=== PATIENT | female | born 1955 | race Caucasian/White ===

== ENCOUNTER 2017-10-01 11:12 | Emergency (ER) | payer MEDICAID ==
[~2017-10-01] VITALS: Ht 160 cm; Wt 49.8 kg
[~2017-10-01 11:12] MED LIST: ALBU8.5H5 INH; ASPI-496 PO; CLON2TAB2 PO; IPRA15SP2 PO; LISI5TAB PO; METH5TAB2 PO; MIRT15TA3 PO; OMEP10CA2 PO; QUET25TA PO; QUET25TA5 PO; SERT25TA PO; SIMV5TAB PO; TIOT18CA INH; ZOLP-413 PO
[2017-10-01 13:14] VITALS: BP 152/80
[2017-10-01] MEDS ORDERED: NAPROXEN 500 MG TABLET PO ONE (16:00)
== END 2017-10-01 16:37 | disposition home or self-care (01) ==
LOC: ED 14:41
DX: M71.162 Other infective bursitis, left knee (principal); E11.9 Type 2 diabetes mellitus without complications; I10 Essential (primary) hypertension; J44.9 Chronic obstructive pulmonary disease, unspecified; I25.10 Atherosclerotic heart disease of native coronary artery without angina pectoris; I25.2 Old myocardial infarction; Z87.820 Personal history of traumatic brain injury
CPT/HCPCS: 99284

== ENCOUNTER 2018-07-06 08:03 | Emergency (ER) | payer MEDICAID ==
[~2018-07-06] VITALS: Ht 160 cm; Wt 50.8 kg
[~2018-07-06 08:03] MED LIST changes: -CLON2TAB2 PO; +CLON2TAB9 PO
[2018-07-06] MEDS ORDERED: KETOROLAC 30 MG/1 ML ONE (08:52)
[2018-07-06] MEDS ORDERED: ONDANSETRON ODT 4 MG ONE (08:52)
[2018-07-06] MEDS ORDERED: ALBUTEROL/IPRATROPIUM 2.5MG/0.5MG, 3 ML NPPB ONE (09:00)
[2018-07-06] MEDS ORDERED: ALBUTEROL/IPRATROPIUM 2.5MG/0.5MG, 3 ML ONE (09:14)
[2018-07-06 09:30] LABS: BASOPHILS # (AUTO) 0.04 x10^3/uL (0-0.1); BASOPHILS % (AUTO) 1 % (0-1); EOSINOPHILS % (AUTO) 0 % (1-7); LYMPHOCYTES # (AUTO) 2.23 x10^3/uL (1-3.4); LYMPHOCYTES % (AUTO) 35 % (22-44); MD NO; MEAN CORPUSCULAR HEMOGLOBIN 29.1 pg (27.0-34.8); MEAN CORPUSCULAR HGB CONC 33.5 g/dL (32.4-35.8); MEAN CORPUSCULAR VOLUME 86.9 fL (80-100); MONOCYTES # (AUTO) 0.54 x10^3/uL (0.2-0.8); MONOCYTES % (AUTO) 8 % (2-9); NEUTROPHILS # (AUTO) 3.63 x10^3/uL (1.8-6.8); NEUTROPHILS % (AUTO) 56 % (42-75); PLATELET COUNT 232 x10^3/uL (130-400); RED BLOOD COUNT 4.63 x10^6/uL (3.82-5.3); RED CELL DISTRIBUTION WIDTH 13.6 % (9.6-15.2)
[2018-07-06 09:44] LABS: ALANINE AMINOTRANSFERASE 22 U/L (12-78); ALBUMIN 3.7 g/dL (3.4-5.0); ANION GAP 9 mmol/L (5-15); CALCIUM 8.8 mg/dL (8.5-10.1); CHLORIDE 109 mmol/L (98-107)
[2018-07-06 09:49] LABS: ALKALINE PHOSPHATASE 52 U/L (45-117); BILIRUBIN,TOTAL 0.3 mg/dL (0.2-1.0); TOTAL PROTEIN 7.4 g/dL (6.4-8.2); TROPONIN I < 0.015 ng/mL (0.000-0.045)
[2018-07-06] MEDS ORDERED: ONDANSETRON ODT 4 MG PO ONE (10:00)
[2018-07-06] MEDS ORDERED: KETOROLAC 30 MG/1 ML IM ONE (10:00)
[2018-07-06 10:04] LABS: CLOSTRIDIUM DIFFICILE ANTIGEN NEGATIVE; CLOSTRIDIUM DIFFICILE TOXIN NEGATIVE (Negative)
[2018-07-06 10:35] VITALS: BP 159/40
== END 2018-07-06 10:52 | disposition home or self-care (01) ==
LOC: ED 10:45
DX: J44.1 Chronic obstructive pulmonary disease with (acute) exacerbation (principal); J00 Acute nasopharyngitis [common cold]; R19.7 Diarrhea, unspecified; I25.10 Atherosclerotic heart disease of native coronary artery without angina pectoris; I25.2 Old myocardial infarction; G89.29 Other chronic pain; I10 Essential (primary) hypertension; Z87.891 Personal history of nicotine dependence
CPT/HCPCS: 36415; 71046; 80053; 84484; 85025; 85379; 87324; 89055; 93005; 94640; 96372; 99285; J1885; J7620; Q0162

== ENCOUNTER 2018-08-17 19:55 | Emergency (ER) | payer MEDICAID ==
[~2018-08-17] VITALS: Ht 152.4 cm; Wt 57.0 kg
[2018-08-17 20:57] LABS: BASOPHILS # (AUTO) 0.04 x10^3/uL (0-0.1); BASOPHILS % (AUTO) 1 % (0-1); EOSINOPHILS # (AUTO) 0.14 x10^3/uL (0-0.4); EOSINOPHILS % (AUTO) 2 % (1-7); LYMPHOCYTES # (AUTO) 2.62 x10^3/uL (1-3.4); LYMPHOCYTES % (AUTO) 32 % (22-44); MD NO; MEAN CORPUSCULAR HEMOGLOBIN 29.4 pg (27.0-34.8); MEAN CORPUSCULAR HGB CONC 33.9 g/dL (32.4-35.8); MEAN CORPUSCULAR VOLUME 86.6 fL (80-100); MEAN PLATELET VOLUME 7.9 fL (7.4-10.4); MONOCYTES % (AUTO) 10 % (2-9); NEUTROPHILS # (AUTO) 4.59 x10^3/uL (1.8-6.8); NEUTROPHILS % (AUTO) 56 % (42-75); PLATELET COUNT 182 x10^3/uL (130-400); RED BLOOD COUNT 4.35 x10^6/uL (3.82-5.3); RED CELL DISTRIBUTION WIDTH 13.9 % (9.6-15.2)
[2018-08-17 21:10] LABS: ALANINE AMINOTRANSFERASE 20 U/L (12-78); ALBUMIN 3.6 g/dL (3.4-5.0); ANION GAP 5 mmol/L (5-15); CALCIUM 8.5 mg/dL (8.5-10.1); CHLORIDE 108 mmol/L (98-107); CREATININE 0.73 mg/dL (0.55-1.02)
[2018-08-17 21:12] LABS: ALKALINE PHOSPHATASE 52 U/L (45-117); BILIRUBIN,TOTAL 0.2 mg/dL (0.2-1.0)
[2018-08-17 22:16] LABS: MICROSCOPIC NOT IND
[2018-08-17 22:18] LABS: CULTURE INDICATED? NO
[2018-08-17 22:28] LABS: AMPHETAMINE SCREEN, URINE Positive (Negative); BARBITURATE SCREEN, URINE Negative (Negative); BENZODIAZEPINE SCREEN, URINE Positive (Negative); CANNABINOID SCREEN, URINE Negative (Negative); COCAINE SCREEN, URINE Negative (Negative); METHADONE SCREEN, URINE Negative (Negative); OPIATE SCREEN, URINE Positive (Negative)
[2018-08-18 00:37] VITALS: BP 94/56
== END 2018-08-18 02:42 | disposition home or self-care (01) ==
LOC: ED 21:23
DX: R41.82 Altered mental status, unspecified (principal); R53.83 Other fatigue; F19.10 Other psychoactive substance abuse, uncomplicated; J44.9 Chronic obstructive pulmonary disease, unspecified; I25.2 Old myocardial infarction; G89.29 Other chronic pain; E11.9 Type 2 diabetes mellitus without complications; I10 Essential (primary) hypertension; I25.10 Atherosclerotic heart disease of native coronary artery without angina pectoris
CPT/HCPCS: 36415; 70450; 80053; 80307; 81003; 85025; 99285

== ENCOUNTER 2018-12-27 17:59 | Observation (INO) | payer MEDICAID ==
[~2018-12-27] VITALS: Ht 160 cm; Wt 48.5 kg
[~2018-12-27 17:59] MED LIST changes: -QUET25TA PO; +QUET25TA7 PO
--- NOTE | 2018-12-27 18:37 | NUR ---
Pt brought in by EMS with c/o "multiple falls from feeling light headed with skin abrasions to right eyebrow and nose." Pt recently seen at [facility] for falls. Pt presents to ED with c-collar on from EMS. Pt complains of 8/10 back pain and right knee pain. Pt states, "I fell twice today and twice yesterday." NADN. adult manager did EKG at bedside. Pt connected to classroom monitor, SPO2% monitor, and NIBP. All safety precautions in place. Call light within reach. Pt clothing placed in personal belonging bag. Pt asks, "can I watch T.V.?" Pt denies cp, sob, n/v/d, diaphoresis
[2018-12-27] MEDS ORDERED: ACETAMINOPHEN 325 MG TABLET PO ONE (19:00)
--- NOTE | 2018-12-27 19:00 | NUR ---
Provided bedside report to ARABELLA Rocha. All questions answered.
[2018-12-27] MEDS ORDERED: ASPIRIN 81 MG TABLET CHEW ONE (19:01)
[2018-12-27 19:20] LABS: BASOPHILS # (AUTO) 0.04 x10^3/uL (0-0.1); BASOPHILS % (AUTO) 1 % (0-1); EOSINOPHILS % (AUTO) 0 % (1-7); LYMPHOCYTES # (AUTO) 1.17 x10^3/uL (1-3.4); LYMPHOCYTES % (AUTO) 18 % (22-44); MD NO; MEAN CORPUSCULAR HEMOGLOBIN 29.3 pg (27.0-34.8); MEAN CORPUSCULAR HGB CONC 34.3 g/dL (32.4-35.8); MEAN CORPUSCULAR VOLUME 85.4 fL (80-100); MEAN PLATELET VOLUME 7.6 fL (7.4-10.4); MONOCYTES # (AUTO) 0.43 x10^3/uL (0.2-0.8); MONOCYTES % (AUTO) 7 % (2-9); NEUTROPHILS # (AUTO) 4.97 x10^3/uL (1.8-6.8); NEUTROPHILS % (AUTO) 75 % (42-75); PLATELET COUNT 172 x10^3/uL (130-400); RED CELL DISTRIBUTION WIDTH 14.6 % (9.6-15.2)
[2018-12-27 19:24] LABS: INTERNATIONAL NORMALIZED RATIO 0.98 (0.93-1.1); PROTHROMBIN TIME 10.3 Seconds (9.6-11.5)
[2018-12-27 19:26] LABS: ALBUMIN 3.8 g/dL (3.4-5.0); ANION GAP 5 mmol/L (5-15); CHLORIDE 112 mmol/L (98-107)
[2018-12-27 19:29] LABS: ALANINE AMINOTRANSFERASE 15 U/L (12-78); ALKALINE PHOSPHATASE 48 U/L (45-117); BILIRUBIN,TOTAL 0.5 mg/dL (0.2-1.0); CREATININE 0.77 mg/dL (0.55-1.02); TOTAL PROTEIN 6.7 g/dL (6.4-8.2)
[2018-12-27] MEDS ORDERED: BACITRACIN ZINC OINT 500U/GM, 0.9 GM ONE (19:51)
--- NOTE | 2018-12-27 19:55 | NUR ---
pt wounds being cleaned. pt remains in c-collar
[2018-12-27] MEDS ORDERED: ACETAMINOPHEN 325 MG TABLET ONE (20:00)
--- NOTE | 2018-12-27 20:10 | NUR ---
pt medicated for pain per emar.
--- NOTE | 2018-12-27 20:17 | NUR ---
x-ray in to see pt
--- NOTE | 2018-12-27 21:26 | NUR ---
pt resting in bed with eyes closed. no stated needs at this time.
[2018-12-27] MEDS ORDERED: DIAZ5TAB4 PO (22:17)
[2018-12-27] MEDS ORDERED: TRAZ-137 PO (22:17)
[2018-12-27] MEDS ORDERED: MEMA5TAB PO (22:17)
--- NOTE | 2018-12-27 22:17 | NUR ---
HOSPITALIST HAS EVALUATED PT. PT CLEARED FOR C-SPINE, HARD COLLAR HAS BEEN REMOVED. PT AWARE SHE IS BEING ADMITTED TO HOSPITAL.
--- NOTE | 2018-12-27 22:27 | NUR ---
REPORT TO ANNIVER FOR ROOM 467
[2018-12-27] MEDS ORDERED: ACETAMINOPHEN 325 MG TABLET PO PRN (22:30)
[2018-12-27] MEDS ORDERED: ONDANSETRON ODT 4 MG PO PRN (22:30)
[2018-12-27] MEDS ORDERED: ENALAPRILAT 1.25 MG/ML, 2ML IVPush PRN (22:30)
[2018-12-27] MEDS ORDERED: ONDANSETRON 2MG/ML, 2ML IVPush PRN (22:30)
--- NOTE | 2018-12-27 22:42 | NUR ---
2 IV ATTEMPTS HAVE FAILED. ANOTHER RN IN TRYING FOR LINE
[2018-12-27 23:08] LABS: THYROID STIMULATING HORMONE 1.62 mIU/L (0.358-3.740)
[2018-12-27 23:11] VITALS: BP 155/80
[2018-12-28] MEDS ORDERED: TRAZODONE 100MG TABLET PO PRN
[2018-12-28] MEDS ORDERED: ALBUTEROL SULFATE 2.5 MG/3 ML NPPB PRN
[2018-12-28 00:08] VITALS: BP 155/80
[2018-12-28] MEDS: ENOXAPARIN 40 MG/0.4 ML SQ SCH ×2 (00:56→00:57)
[2018-12-28 01:45] LABS: MICROSCOPIC AUTO
[2018-12-28 01:47] LABS: AMPHETAMINE SCREEN, URINE Negative (Negative); BARBITURATE SCREEN, URINE Negative (Negative); BENZODIAZEPINE SCREEN, URINE Positive (Negative); CANNABINOID SCREEN, URINE Negative (Negative); COCAINE SCREEN, URINE Negative (Negative); CULTURE INDICATED? YES; METHADONE SCREEN, URINE Negative (Negative); OPIATE SCREEN, URINE Negative (Negative)
[2018-12-28 02:52] VITALS: BP 120/70
[2018-12-28] MEDS ORDERED: LOSA50TA14 PO (04:47)
[2018-12-28 07:18] VITALS: BP 137/71
[2018-12-28] MEDS ORDERED: MEMANTINE 5MG TABLET PO SCH (09:00)
[2018-12-28] MEDS ORDERED: LOSARTAN 50MG TABLET PO SCH (10:00)
[2018-12-28 12:35] VITALS: BP 165/83
[2018-12-28 15:15] VITALS: BP 156/74
== END 2018-12-28 15:40 | disposition home or self-care (01) ==
LOC: ED 21:28 → INTOOBSV 22:10 → EDIP 22:10 → 4NOR 23:02
PROVIDERS: ADMIT Family Medicine; ATTEND Family Medicine
DX: S00.81XA Abrasion of other part of head, initial encounter (principal); R26.9 Unspecified abnormalities of gait and mobility; J44.9 Chronic obstructive pulmonary disease, unspecified; I10 Essential (primary) hypertension; W18.30XA Fall on same level, unspecified, initial encounter; Y93.89 Activity, other specified; Y92.89 Other specified places as the place of occurrence of the external cause; Y99.8 Other external cause status; I44.7 Left bundle-branch block, unspecified; Z79.899 Other long term (current) drug therapy
CPT/HCPCS: 36415; 70450; 70486; 71045; 72125; 80053; 80307; 81001; 82607; 84443; 85025; 85610; 85730; 86592; 86780; 87086; 87806; 93005; 99285; G0378; J1650; G0475

== ENCOUNTER 2019-02-07 08:08 | Inpatient (IN) | payer MEDICAID ==
[~2019-02-07] VITALS: Ht 160 cm; Wt 52.8 kg
[~2019-02-07 08:08] MED LIST changes: +DIAZ5TAB4 PO; +LOSA50TA14 PO; +MEMA5TAB PO; +TRAZ-137 PO
[2019-02-07] MEDS ORDERED: MEMA5TAB PO (08:21)
[2019-02-07] MEDS ORDERED: CITA20TA6 PO (08:21)
[2019-02-07] MEDS ORDERED: QUET25TA7 PO (08:24)
[2019-02-07] MEDS ORDERED: ONDANSETRON 2MG/ML, 2ML ONE (08:27)
[2019-02-07] MEDS ORDERED: MORPHINE SULFATE 4 MG/ML, 1ML ONE ×2 (08:27→13:57)
[2019-02-07] MEDS ORDERED: MORPHINE SULFATE 4 MG/ML, 1ML IVPush PRN (08:30)
[2019-02-07] MEDS ORDERED: SODIUM CHLORIDE FLUSH 10ML SYR IVF ONE (08:30)
[2019-02-07] MEDS ORDERED: ASPIRIN 81 MG TABLET CHEW PO ONE (08:30)
[2019-02-07] MEDS ORDERED: ONDANSETRON 2MG/ML, 2ML IVPush ONE (08:30)
[2019-02-07 09:18] LABS: MEAN CORPUSCULAR HEMOGLOBIN 28.5 pg (27.0-34.8); MEAN CORPUSCULAR HGB CONC 32.8 g/dL (32.4-35.8); MEAN CORPUSCULAR VOLUME 86.9 fL (80-100); MEAN PLATELET VOLUME 8.1 fL (7.4-10.4); PLATELET COUNT 154 x10^3/uL (130-400); RED BLOOD COUNT 5.05 x10^6/uL (3.82-5.3); RED CELL DISTRIBUTION WIDTH 13.7 % (9.6-15.2)
[2019-02-07] MEDS ORDERED: CEFTRIAXONE PMX 1GM/50ML 50 ML IV ONE (09:30)
[2019-02-07] MEDS ORDERED: SODIUM CHLORIDE 0.9% 1,000ML IVBOLUS ONE (09:30)
[2019-02-07] MEDS ORDERED: AZITHROMYCIN 500 MG in SODIUM CHLORIDE 0.9% 250 ML IV ONE (09:30)
[2019-02-07] MEDS ORDERED: CEFTRIAXONE PMX 1GM/50ML 50 ML ONE (09:42)
--- NOTE | 2019-02-07 09:48 | NUR ---
CARE FOR RN BREAK PROVIDED. PT SR PER MONITOR, AUTO BP AND PULSE OX IN PLACE. IV FLUIDS AND ABX STARTED ORDERED. BLOOD CULTURES X2 IN LAB PROCESSING. PINK ARMBAND IN PLACE. PT WITH MELLISSA PAWS WARMER IN PLACE. FLUIIDS AT BEDSIDE.
[2019-02-07 09:53] LABS: MD YES
[2019-02-07 09:54] LABS: BANDS%(MANUAL) 7 % (0-7); LYMPH#(MANUAL) 0.52 x10^3/uL (1-3.4); LYMPHS% (MANUAL) 4 % (22-44); MONOS#(MANUAL) 0.52 x10^3/uL (0.3-2.7); MONOS% (MANUAL) 4 % (2-9); SEG#(MANUAL) 10.97 x10^3/uL (1.8-6.8); SEGS% (MANUAL) 85 % (42-75)
[2019-02-07 09:55] LABS: <PLATELET ESTIMATE> ADEQUATE; <PLT MORPHOLOGY> NORMAL PLT MORPH; <RBC MORPHOLOGY> NORMAL
--- NOTE | 2019-02-07 09:56 | NUR ---
REPORT TO JUAN RAMON BELL.
[2019-02-07 10:05] LABS: ALBUMIN 3.9 g/dL (3.4-5.0); ANION GAP 7 mmol/L (5-15); CALCIUM 8.9 mg/dL (8.5-10.1); CHLORIDE 107 mmol/L (98-107); CREATININE 0.96 mg/dL (0.55-1.02)
[2019-02-07 10:08] LABS: TROPONIN I < 0.015 ng/mL (0.000-0.045)
--- NOTE | 2019-02-07 10:54 | NUR ---
SBAR TO ASYA BELL VIA TELEPHONE
[2019-02-07 11:24] VITALS: BP 163/80
[2019-02-07] MEDS: LOSARTAN 50MG TABLET PO SCH (12:30)
[2019-02-07] MEDS: MEMANTINE 5MG TABLET PO SCH (12:30)
[2019-02-07] MEDS: CITALOPRAM 20 MG TABLET PO SCH (12:30)
[2019-02-07] MEDS ORDERED: ONDANSETRON 2MG/ML, 2ML IVPush PRN (12:30)
[2019-02-07] MEDS: ENOXAPARIN 40 MG/0.4 ML SQ SCH (12:30)
[2019-02-07] MEDS ORDERED: DOCUSATE 100 MG CAPSULE PO PRN (12:30)
[2019-02-07] MEDS ORDERED: hydrALAzine 20 MG/ML, 1ML IVPush PRN (12:30)
[2019-02-07] MEDS ORDERED: morphine SULFATE 10 MG/ML, 1ML IVPush PRN (12:30)
[2019-02-07] MEDS ORDERED: ACETAMINOPHEN 325 MG TABLET PO PRN (12:30)
[2019-02-07] MEDS ORDERED: NITROGLYCERIN 0.4 MG BOTTLE (25 TABS) SL PRN (12:30)
[2019-02-07] MEDS ORDERED: CYCLOBENZAPRINE 10 MG TABLET PO PRN (12:30)
[2019-02-07] MEDS ORDERED: ALBUTEROL SULFATE 2.5 MG/3 ML NPPB PRN (14:00)
[2019-02-07] MEDS: LACTATED RINGERS 1,000 ML IV SCH (14:08)
[2019-02-07 14:18] VITALS: BP 120/67
[2019-02-07 18:42] VITALS: BP 101/51
[2019-02-07] MEDS: QUETIAPINE 25MG TABLET PO SCH (20:33)
[2019-02-08] MEDS: LACTATED RINGERS 1,000 ML IV SCH (00:56)
[2019-02-08 01:09] VITALS: BP 109/47
[2019-02-08 01:15] VITALS: BP 109/47
[2019-02-08 05:57] LABS: ANION GAP 4 mmol/L (5-15); CALCIUM 8.5 mg/dL (8.5-10.1); CHLORIDE 109 mmol/L (98-107); CREATININE 0.74 mg/dL (0.55-1.02)
[2019-02-08 06:08] LABS: BASOPHILS # (AUTO) 0.03 x10^3/uL (0-0.1); BASOPHILS % (AUTO) 0 % (0-1); EOSINOPHILS % (AUTO) 0 % (1-7); LYMPHOCYTES # (AUTO) 1.76 x10^3/uL (1-3.4); LYMPHOCYTES % (AUTO) 14 % (22-44); MD NO; MEAN CORPUSCULAR HGB CONC 33.4 g/dL (32.4-35.8); MEAN CORPUSCULAR VOLUME 86.8 fL (80-100); MEAN PLATELET VOLUME 8.5 fL (7.4-10.4); MONOCYTES % (AUTO) 8 % (2-9); NEUTROPHILS # (AUTO) 9.83 x10^3/uL (1.8-6.8); NEUTROPHILS % (AUTO) 78 % (42-75); PLATELET COUNT 149 x10^3/uL (130-400); RED BLOOD COUNT 4.11 x10^6/uL (3.82-5.3)
[2019-02-08 07:21] VITALS: BP 116/65
[2019-02-08] MEDS: CEFTRIAXONE PMX 1GM/50ML 50 ML IV SCH ×2 (08:47→20:42)
[2019-02-08] MEDS: MEMANTINE 5MG TABLET PO SCH (08:47)
[2019-02-08] MEDS: LOSARTAN 50MG TABLET PO SCH (08:47)
[2019-02-08] MEDS: CITALOPRAM 20 MG TABLET PO SCH (08:47)
[2019-02-08] MEDS ORDERED: CEFTRIAXONE PMX 1GM/50ML 50 ML IV SCH (09:00)
[2019-02-08] MEDS: AZITHROMYCIN 500 MG in SODIUM CHLORIDE 0.9% 250 ML IV SCH (11:37)
[2019-02-08] MEDS: GUAIFENESIN/COD200MG-20MG/10ML LIQUID PO PRN ×2 (11:42→20:56)
[2019-02-08] MEDS: ENOXAPARIN 40 MG/0.4 ML SQ SCH (11:42)
[2019-02-08 12:54] VITALS: BP 120/66
[2019-02-08 18:26] VITALS: BP 142/68
[2019-02-08] MEDS: QUETIAPINE 25MG TABLET PO SCH (20:42)
[2019-02-09 01:19] VITALS: BP 118/74
[2019-02-09 05:57] LABS: ANION GAP 3 mmol/L (5-15); CALCIUM 8.7 mg/dL (8.5-10.1); CHLORIDE 108 mmol/L (98-107); CREATININE 0.57 mg/dL (0.55-1.02)
[2019-02-09 06:16] LABS: BASOPHILS # (AUTO) 0.03 x10^3/uL (0-0.1); BASOPHILS % (AUTO) 0 % (0-1); EOSINOPHILS % (AUTO) 0 % (1-7); LYMPHOCYTES # (AUTO) 1.93 x10^3/uL (1-3.4); LYMPHOCYTES % (AUTO) 22 % (22-44); MD NO; MEAN CORPUSCULAR HEMOGLOBIN 29.5 pg (27.0-34.8); MEAN CORPUSCULAR HGB CONC 33.8 g/dL (32.4-35.8); MEAN CORPUSCULAR VOLUME 87.4 fL (80-100); MEAN PLATELET VOLUME 8.2 fL (7.4-10.4); MONOCYTES # (AUTO) 0.71 x10^3/uL (0.2-0.8); MONOCYTES % (AUTO) 8 % (2-9); NEUTROPHILS # (AUTO) 6.17 x10^3/uL (1.8-6.8); NEUTROPHILS % (AUTO) 70 % (42-75); PLATELET COUNT 151 x10^3/uL (130-400); RED BLOOD COUNT 4.06 x10^6/uL (3.82-5.3); RED CELL DISTRIBUTION WIDTH 13.6 % (9.6-15.2)
[2019-02-09 07:36] VITALS: BP 138/72
[2019-02-09] MEDS: LOSARTAN 50MG TABLET PO SCH (08:40)
[2019-02-09] MEDS: MEMANTINE 5MG TABLET PO SCH (08:40)
[2019-02-09] MEDS: CITALOPRAM 20 MG TABLET PO SCH (08:40)
[2019-02-09] MEDS: GUAIFENESIN/COD200MG-20MG/10ML LIQUID PO PRN ×2 (08:41→19:51)
[2019-02-09] MEDS: CEFTRIAXONE PMX 1GM/50ML 50 ML IV SCH ×2 (08:56→20:51)
[2019-02-09] MEDS: AZITHROMYCIN 500 MG in SODIUM CHLORIDE 0.9% 250 ML IV SCH (11:21)
[2019-02-09] MEDS: ENOXAPARIN 40 MG/0.4 ML SQ SCH (11:22)
[2019-02-09 12:36] VITALS: BP 136/71
[2019-02-09 19:30] VITALS: BP 136/63
[2019-02-09] MEDS: QUETIAPINE 25MG TABLET PO SCH (19:51)
[2019-02-10 01:39] VITALS: BP 143/63
[2019-02-10 07:44] VITALS: BP 130/63
[2019-02-10] MEDS: LOSARTAN 50MG TABLET PO SCH (08:46)
[2019-02-10] MEDS: CEFTRIAXONE PMX 1GM/50ML 50 ML IV SCH (08:46)
[2019-02-10] MEDS: MEMANTINE 5MG TABLET PO SCH (08:46)
[2019-02-10] MEDS: CITALOPRAM 20 MG TABLET PO SCH (08:46)
[2019-02-10] MEDS: AZITHROMYCIN 500 MG in SODIUM CHLORIDE 0.9% 250 ML IV SCH (11:30)
[2019-02-10] MEDS: ENOXAPARIN 40 MG/0.4 ML SQ SCH (12:18)
[2019-02-10] MEDS ORDERED: LEVO750T26 PO (12:51)
== END 2019-02-10 13:55 | disposition home or self-care (01) | DRG 871 ==
LOC: ED 09:17 → EDIP 10:18 → 3NE 11:10 → DCLOUNGE 02-10 13:36
PROVIDERS: ADMIT Internal Medicine; ATTEND Internal Medicine
DX: A40.3 Sepsis due to Streptococcus pneumoniae (principal); J15.9 Unspecified bacterial pneumonia; J96.01 Acute respiratory failure with hypoxia; J44.0 Chronic obstructive pulmonary disease with (acute) lower respiratory infection; J44.1 Chronic obstructive pulmonary disease with (acute) exacerbation; G89.29 Other chronic pain; M54.9 Dorsalgia, unspecified; R07.89 Other chest pain; E11.9 Type 2 diabetes mellitus without complications; F03.90 Unspecified dementia, unspecified severity, without behavioral disturbance, psychotic disturbance, mood disturbance, and anxiety; F17.210 Nicotine dependence, cigarettes, uncomplicated; F41.9 Anxiety disorder, unspecified; I25.10 Atherosclerotic heart disease of native coronary artery without angina pectoris; I10 Essential (primary) hypertension; Z59.0 Homelessness; I25.2 Old myocardial infarction
CPT/HCPCS: 36415; 84145; 99285; J7613; 71045; 80048; 82040; 83605; 83735; 83880; 84484; 85025; 87040; 87077; 87181; 93005; 94640; 96365; 96375; G0378; J0456; J0696; J2405; J2270; J7030; J7050; J7120

== ENCOUNTER 2019-03-07 18:48 | Emergency (ER) | payer MEDICAID ==
[~2019-03-07] VITALS: Ht 160 cm; Wt 50.0 kg
[~2019-03-07 18:48] MED LIST changes: +CITA20TA6 PO; +LEVO750T26 PO
--- NOTE | 2019-03-07 19:07 | NUR ---
LAUREN CALDWELL FROM [facility], PER EMS PT LETHARGIC, ALERT TO SELF ONLY. PT FOLLOWS COMMAND, + HANDBOOK WRITER, CO RIGHT UPPER ARM PAIN ONLY. FSBS-118, HR-118, B/P-122/70, 93% R/A. MONITORS APPLIED, SIDERAISL UP X2, CALL LIGHT WITHIN REACH. FAMILY AT BEDSIDE
[2019-03-07 19:39] LABS: BASOPHILS # (AUTO) 0.03 x10^3/uL (0-0.1); BASOPHILS % (AUTO) 1 % (0-1); EOSINOPHILS % (AUTO) 0 % (1-7); LYMPHOCYTES # (AUTO) 1.91 x10^3/uL (1-3.4); LYMPHOCYTES % (AUTO) 35 % (22-44); MD NO; MEAN CORPUSCULAR HEMOGLOBIN 28.7 pg (27.0-34.8); MEAN CORPUSCULAR HGB CONC 32.2 g/dL (32.4-35.8); MEAN CORPUSCULAR VOLUME 89.1 fL (80-100); MEAN PLATELET VOLUME 7.3 fL (7.4-10.4); MONOCYTES # (AUTO) 0.44 x10^3/uL (0.2-0.8); MONOCYTES % (AUTO) 8 % (2-9); NEUTROPHILS # (AUTO) 3.06 x10^3/uL (1.8-6.8); NEUTROPHILS % (AUTO) 56 % (42-75); PLATELET COUNT 178 x10^3/uL (130-400); RED BLOOD COUNT 4.26 x10^6/uL (3.82-5.3); RED CELL DISTRIBUTION WIDTH 13.9 % (9.6-15.2)
[2019-03-07] MEDS ORDERED: CITA10TA4 PO (19:42)
[2019-03-07] MEDS ORDERED: DIAZ2TAB3 PO (19:42)
[2019-03-07] MEDS ORDERED: SERT25TA3 PO (19:42)
[2019-03-07] MEDS ORDERED: BUSP5TAB2 PO (19:42)
[2019-03-07 19:43] LABS: ALANINE AMINOTRANSFERASE 16 U/L (12-78); ALBUMIN 3.8 g/dL (3.4-5.0); ANION GAP 8 mmol/L (5-15); CALCIUM 8.9 mg/dL (8.5-10.1); CHLORIDE 111 mmol/L (98-107); CREATININE 0.85 mg/dL (0.55-1.02)
[2019-03-07 19:47] LABS: ALKALINE PHOSPHATASE 51 U/L (45-117); BILIRUBIN,TOTAL 0.3 mg/dL (0.2-1.0); TROPONIN I < 0.015 ng/mL (0.000-0.045)
[2019-03-07 19:55] VITALS: BP 146/72
--- NOTE | 2019-03-07 19:56 | NUR ---
pt resting on marco barry, monitors in place, siderails up x2, call light within reach. chart up for recheck
== END 2019-03-07 20:54 | disposition home or self-care (01) ==
LOC: ED 20:38
DX: F41.1 Generalized anxiety disorder (principal); I10 Essential (primary) hypertension; J44.9 Chronic obstructive pulmonary disease, unspecified; I25.2 Old myocardial infarction; I25.10 Atherosclerotic heart disease of native coronary artery without angina pectoris; F17.200 Nicotine dependence, unspecified, uncomplicated; Z90.710 Acquired absence of both cervix and uterus
CPT/HCPCS: 36415; 71045; 80053; 83880; 84484; 85025; 93005; 99284

== ENCOUNTER 2019-04-04 18:37 | Emergency (ER) | payer MEDICAID ==
[~2019-04-04] VITALS: Ht 160 cm; Wt 54.5 kg
[~2019-04-04 18:37] MED LIST changes: +BUSP5TAB2 PO; +CITA10TA4 PO; +DIAZ2TAB3 PO; +SERT25TA3 PO
--- NOTE | 2019-04-04 19:00 | NUR ---
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 GIVEN ONE NITRO BRINGING CP FROM A 07/16 TO 03/16 THEN GIVEN FENTANYL 100MCG FOR RESULTING [place]. PT ON MONITOR. PT GIVEN HOME [place] PER DR. GARCES SINCE SHE DID NOT TAKE HER BP MEDS SINCE YESTERDAY.
[2019-04-04 19:14] LABS: BASOPHILS # (AUTO) 0.06 x10^3/uL (0-0.1); BASOPHILS % (AUTO) 1 % (0-1); EOSINOPHILS % (AUTO) 0 % (1-7); LYMPHOCYTES # (AUTO) 1.43 x10^3/uL (1-3.4); LYMPHOCYTES % (AUTO) 19 % (22-44); MD NO; MEAN CORPUSCULAR HEMOGLOBIN 29.6 pg (27.0-34.8); MEAN CORPUSCULAR HGB CONC 33.3 g/dL (32.4-35.8); MEAN CORPUSCULAR VOLUME 88.9 fL (80-100); MEAN PLATELET VOLUME 7.9 fL (7.4-10.4); MONOCYTES # (AUTO) 0.49 x10^3/uL (0.2-0.8); MONOCYTES % (AUTO) 6 % (2-9); NEUTROPHILS # (AUTO) 5.74 x10^3/uL (1.8-6.8); NEUTROPHILS % (AUTO) 74 % (42-75); PLATELET COUNT 189 x10^3/uL (130-400); RED BLOOD COUNT 4.71 x10^6/uL (3.82-5.3); RED CELL DISTRIBUTION WIDTH 13.8 % (9.6-15.2)
[2019-04-04] MEDS ORDERED: BUSP10TA PO (19:17)
[2019-04-04] MEDS ORDERED: DIAZ5TAB4 PO (19:17)
[2019-04-04 19:24] LABS: INTERNATIONAL NORMALIZED RATIO 0.95 (0.93-1.1)
[2019-04-04 19:26] LABS: ALANINE AMINOTRANSFERASE 18 U/L (12-78); ANION GAP 7 mmol/L (5-15); CALCIUM 9.2 mg/dL (8.5-10.1); CHLORIDE 109 mmol/L (98-107); CREATININE 0.75 mg/dL (0.55-1.02)
[2019-04-04 19:30] LABS: ALKALINE PHOSPHATASE 56 U/L (45-117); BILIRUBIN,TOTAL 0.3 mg/dL (0.2-1.0); TOTAL PROTEIN 7.2 g/dL (6.4-8.2); TROPONIN I < 0.015 ng/mL (0.000-0.045)
--- NOTE | 2019-04-04 19:34 | NUR ---
CHART UP FOR MD RECHECK. PT AWARE.
[2019-04-04 19:58] VITALS: BP 173/83
--- NOTE | 2019-04-04 20:11 | NUR ---
DR. GARCES AT BEDSIDE FOR RECHECK.
== END 2019-04-04 20:45 | disposition home or self-care (01) ==
LOC: ED 19:29
DX: R07.89 Other chest pain (principal); I10 Essential (primary) hypertension; F17.200 Nicotine dependence, unspecified, uncomplicated
CPT/HCPCS: 36415; 71045; 80053; 84484; 85025; 85610; 85730; 93005; 99284

== ENCOUNTER 2019-05-25 16:04 | Emergency (ER) | payer MEDICAID ==
[~2019-05-25] VITALS: Ht 160 cm; Wt 58.0 kg
[2019-05-25 17:13] VITALS: BP 155/111
== END 2019-05-25 18:06 | disposition home or self-care (01) ==
LOC: ED 17:45
DX: R07.89 Other chest pain (principal); Z76.0 Encounter for issue of repeat prescription; F17.200 Nicotine dependence, unspecified, uncomplicated; I10 Essential (primary) hypertension; J44.9 Chronic obstructive pulmonary disease, unspecified; I25.2 Old myocardial infarction; F17.210 Nicotine dependence, cigarettes, uncomplicated; Z90.710 Acquired absence of both cervix and uterus
CPT/HCPCS: 36415; 71045; 80048; 82040; 84484; 85025; 93005; 96374; 99284; J1885

== ENCOUNTER 2019-08-15 06:16 | Inpatient (IN) | payer MEDICAID ==
[~2019-08-15] VITALS: Ht 160 cm; Wt 62.3 kg
[~2019-08-15 06:16] MED LIST changes: +BUSP10TA PO; +SERT50TA28 PO
--- NOTE | 2019-08-15 06:23 | NUR ---
EKG IN TRIAGE
[2019-08-15] MEDS ORDERED: BUSP15TA PO (06:43)
[2019-08-15] MEDS ORDERED: QUET25TA7 PO (06:43)
[2019-08-15] MEDS ORDERED: LOSA50TA14 PO (06:43)
[2019-08-15] MEDS ORDERED: DIAZ5TAB4 PO (06:43)
[2019-08-15] MEDS ORDERED: CITA20TA6 PO (06:43)
--- NOTE | 2019-08-15 06:43 | NUR ---
PT BIB SELF WITH C/O PRODUCTIVE COUGH WITH YELLOW SPUTUM FOR 3 DAYS. C/O BILAT RIB PAIN WORSE WITH COUGH. PT WITH NO S/S OF ACUTE RESP DISTRESS. PT NSR WITH BBB NOTED ON MONITOR. PT SPEAKING FULL SENTENCES WITH LITTLE DIFFICULTY. PT UNABLE TO TAKE DEEP BREATHS WITHOUT COUGHING. MONITOR, BP, AND PULSE OX IN PLACE. CALL LIGHT IN REACH. WARM BLANKET GIVEN. AWAITING ERP EVAL.
[2019-08-15] MEDS ORDERED: SODIUM CHLORIDE FLUSH 10ML SYR IVF ONE (07:00)
--- NOTE | 2019-08-15 07:26 | NUR ---
LABS OBTAINED, MEDICATED ORDERED
[2019-08-15 07:47] LABS: BASOPHILS # (AUTO) 0.03 x10^3/uL (0-0.1); BASOPHILS % (AUTO) 0 % (0-1); EOSINOPHILS % (AUTO) 0 % (1-7); LYMPHOCYTES # (AUTO) 1.04 x10^3/uL (1-3.4); LYMPHOCYTES % (AUTO) 12 % (22-44); MD NO; MEAN CORPUSCULAR HEMOGLOBIN 28.9 pg (27.0-34.8); MEAN CORPUSCULAR HGB CONC 32.8 g/dL (32.4-35.8); MEAN CORPUSCULAR VOLUME 88.1 fL (80-100); MEAN PLATELET VOLUME 8.2 fL (7.4-10.4); MONOCYTES # (AUTO) 0.72 x10^3/uL (0.2-0.8); MONOCYTES % (AUTO) 8 % (2-9); NEUTROPHILS % (AUTO) 80 % (42-75); PLATELET COUNT 210 x10^3/uL (130-400); RED BLOOD COUNT 4.35 x10^6/uL (3.82-5.3); RED CELL DISTRIBUTION WIDTH 13.4 % (9.6-15.2)
[2019-08-15 07:50] LABS: ALANINE AMINOTRANSFERASE 15 U/L (12-78); ALBUMIN 3.3 g/dL (3.4-5.0); ANION GAP 7 mmol/L (5-15); CALCIUM 8.8 mg/dL (8.5-10.1); CHLORIDE 107 mmol/L (98-107); CREATININE 1.32 mg/dL (0.55-1.02)
[2019-08-15 07:54] LABS: ALKALINE PHOSPHATASE 64 U/L (45-117); BILIRUBIN,TOTAL 0.6 mg/dL (0.2-1.0); TOTAL PROTEIN 7.7 g/dL (6.4-8.2); TROPONIN I < 0.015 ng/mL (0.000-0.045)
[2019-08-15] MEDS ORDERED: CEFTRIAXONE PMX 1GM/50ML 50 ML ONE (07:58)
[2019-08-15] MEDS ORDERED: AZITHROMYCIN 500 MG in SODIUM CHLORIDE 0.9% 250 ML IVPB ONE (08:00)
[2019-08-15] MEDS ORDERED: CEFTRIAXONE PMX 1GM/50ML 50 ML IVPB ONE (08:00)
--- NOTE | 2019-08-15 08:55 | NUR ---
REPORT TO SYD BELL, ZITHROMAX STILL INFUSING.
[2019-08-15] MEDS: LOSARTAN 50MG TABLET PO SCH (09:00)
[2019-08-15] MEDS: DIAZEPAM 5 MG TABLET PO SCH ×2 (09:00→21:00)
[2019-08-15] MEDS: CITALOPRAM 20 MG TABLET PO SCH (09:00)
[2019-08-15] MEDS ORDERED: ONDANSETRON ODT 4 MG PO PRN (09:00)
[2019-08-15] MEDS ORDERED: hydrALAzine 20 MG/ML, 1ML IVPush PRN (09:00)
[2019-08-15] MEDS ORDERED: TRAZODONE 50MG TABLET PO PRN (09:00)
[2019-08-15] MEDS: MEMANTINE 5MG TABLET PO SCH (09:00)
[2019-08-15] MEDS ORDERED: LACTATED RINGERS 1,000 ML IV ONE (09:00)
[2019-08-15] MEDS: BUSPIRONE 5 MG TABLET PO SCH ×2 (09:00→21:00)
[2019-08-15] MEDS ORDERED: FAMOTIDINE 20 MG TABLET PO SCH ×2 (09:00→21:00)
[2019-08-15] MEDS ORDERED: POLYETHYLENE GLYCOL 17 GM PACKET PO PRN (09:00)
[2019-08-15] MEDS ORDERED: SODIUM CHLORIDE FLUSH 10ML SYR IVF PRN (09:30)
[2019-08-15 09:40] VITALS: BP 110/67
[2019-08-15] MEDS: methylPREDNISolone SOD SUCC 125 MG/2 ML IVPush SCH ×2 (09:42→16:42)
[2019-08-15] MEDS: ENOXAPARIN 30 MG/0.3 ML SQ SCH ×2 (10:29→21:00)
[2019-08-15 12:09] VITALS: BP 113/67
[2019-08-15] MEDS: GUAIFENESIN/DM 200-20MG, 10ML UDC PO PRN (17:45)
[2019-08-15] MEDS: IBUPROFEN 600 MG TABLET PO PRN (17:45)
[2019-08-15 19:07] VITALS: BP 113/73
[2019-08-15] MEDS: CEFTRIAXONE PMX 1GM/50ML 50 ML IV SCH (19:54)
[2019-08-15] MEDS: QUETIAPINE 25MG TABLET PO SCH (21:00)
[2019-08-16] MEDS: methylPREDNISolone SOD SUCC 125 MG/2 ML IVPush SCH ×3 (00:34→16:04)
[2019-08-16] MEDS: ENOXAPARIN 30 MG/0.3 ML SQ SCH ×4 (01:00→20:06)
[2019-08-16 01:04] VITALS: BP 121/77
[2019-08-16 05:50] LABS: BASOPHILS % (AUTO) 0 % (0-1); EOSINOPHILS % (AUTO) 0 % (1-7); LYMPHOCYTES # (AUTO) 0.63 x10^3/uL (1-3.4); LYMPHOCYTES % (AUTO) 7 % (22-44); MD NO; MEAN CORPUSCULAR HGB CONC 32.5 g/dL (32.4-35.8); MONOCYTES # (AUTO) 0.21 x10^3/uL (0.2-0.8); MONOCYTES % (AUTO) 2 % (2-9); NEUTROPHILS # (AUTO) 7.81 x10^3/uL (1.8-6.8); NEUTROPHILS % (AUTO) 90 % (42-75); PLATELET COUNT 251 x10^3/uL (130-400); RED BLOOD COUNT 4.33 x10^6/uL (3.82-5.3); RED CELL DISTRIBUTION WIDTH 13.5 % (9.6-15.2)
[2019-08-16 05:53] LABS: CHLORIDE 113 mmol/L (98-107)
[2019-08-16] MEDS: DIAZEPAM 5 MG TABLET PO SCH ×3 (05:53→20:05)
[2019-08-16 05:55] LABS: ANION GAP 8 mmol/L (5-15); CREATININE 0.92 mg/dL (0.55-1.02)
[2019-08-16 07:11] VITALS: BP 170/70
[2019-08-16] MEDS: CEFTRIAXONE PMX 1GM/50ML 50 ML IV SCH ×2 (08:27→20:06)
[2019-08-16] MEDS: BUSPIRONE 5 MG TABLET PO SCH ×2 (08:27→20:04)
[2019-08-16] MEDS: GUAIFENESIN/DM 200-20MG, 10ML UDC PO PRN ×3 (08:27→23:00)
[2019-08-16] MEDS: MEMANTINE 5MG TABLET PO SCH (08:27)
[2019-08-16] MEDS: AZITHROMYCIN 250 MG TABLET PO SCH (08:27)
[2019-08-16] MEDS: CITALOPRAM 20 MG TABLET PO SCH (08:28)
[2019-08-16] MEDS: LOSARTAN 50MG TABLET PO SCH (08:28)
[2019-08-16] MEDS: ONDANSETRON 2MG/ML, 2ML IVPush PRN ×2 (10:55→20:03)
[2019-08-16] MEDS: NICOTINE 14MG/24 HR PATCH.TD24 TD SCH (10:55)
[2019-08-16] MEDS: ACETAMINOPHEN 325 MG TABLET PO PRN ×2 (10:55→20:05)
[2019-08-16 12:15] VITALS: BP 147/78
[2019-08-16 18:45] VITALS: BP 169/81
[2019-08-16] MEDS: QUETIAPINE 25MG TABLET PO SCH (20:03)
[2019-08-16] MEDS: FAMOTIDINE 20 MG TABLET PO SCH (20:05)
[2019-08-17] MEDS: methylPREDNISolone SOD SUCC 125 MG/2 ML IVPush SCH ×3 (00:43→17:07)
[2019-08-17 01:18] VITALS: BP 166/83
[2019-08-17] MEDS: CEFTRIAXONE PMX 1GM/50ML 50 ML IV SCH ×2 (08:21→19:51)
[2019-08-17] MEDS: LOSARTAN 50MG TABLET PO SCH ×3 (08:22→21:06)
[2019-08-17] MEDS: MEMANTINE 5MG TABLET PO SCH (08:22)
[2019-08-17] MEDS: CITALOPRAM 20 MG TABLET PO SCH (08:22)
[2019-08-17] MEDS: BUSPIRONE 5 MG TABLET PO SCH ×2 (08:22→21:05)
[2019-08-17] MEDS: FAMOTIDINE 20 MG TABLET PO SCH ×2 (08:22→21:06)
[2019-08-17] MEDS: DIAZEPAM 5 MG TABLET PO SCH ×2 (08:22→21:06)
[2019-08-17] MEDS: ENOXAPARIN 30 MG/0.3 ML SQ SCH ×2 (08:23→21:00)
[2019-08-17] MEDS: NICOTINE 14MG/24 HR PATCH.TD24 TD SCH (08:23)
[2019-08-17] MEDS: AZITHROMYCIN 250 MG TABLET PO SCH ×2 (08:23→09:00)
[2019-08-17] MEDS: GUAIFENESIN/DM 200-20MG, 10ML UDC PO PRN ×2 (08:29→19:51)
[2019-08-17 09:00] VITALS: BP 171/78
[2019-08-17 12:29] VITALS: BP 150/65
[2019-08-17] MEDS: IBUPROFEN 600 MG TABLET PO PRN (17:10)
[2019-08-17 19:17] VITALS: BP 171/74
[2019-08-17] MEDS: QUETIAPINE 25MG TABLET PO SCH (21:06)
[2019-08-18] MEDS: methylPREDNISolone SOD SUCC 125 MG/2 ML IVPush SCH ×3 (00:53→16:38)
[2019-08-18 02:45] VITALS: BP 172/76
[2019-08-18 07:41] VITALS: BP 152/76
[2019-08-18] MEDS: BUSPIRONE 5 MG TABLET PO SCH ×2 (08:49→20:22)
[2019-08-18] MEDS: CITALOPRAM 20 MG TABLET PO SCH (08:49)
[2019-08-18] MEDS: ENOXAPARIN 30 MG/0.3 ML SQ SCH ×2 (08:49→20:36)
[2019-08-18] MEDS: CEFTRIAXONE PMX 1GM/50ML 50 ML IV SCH ×2 (08:49→20:21)
[2019-08-18] MEDS: LOSARTAN 50MG TABLET PO SCH ×3 (08:50→20:23)
[2019-08-18] MEDS: IBUPROFEN 600 MG TABLET PO PRN (08:50)
[2019-08-18] MEDS: AZITHROMYCIN 250 MG TABLET PO SCH (08:50)
[2019-08-18] MEDS: MEMANTINE 5MG TABLET PO SCH (08:50)
[2019-08-18] MEDS: DIAZEPAM 5 MG TABLET PO SCH ×2 (08:50→20:23)
[2019-08-18] MEDS: FAMOTIDINE 20 MG TABLET PO SCH ×2 (08:50→20:21)
[2019-08-18] MEDS: NICOTINE 14MG/24 HR PATCH.TD24 TD SCH (08:52)
[2019-08-18 12:34] VITALS: BP 173/85
[2019-08-18 13:26] VITALS: BP 157/90
[2019-08-18] MEDS: ACETAMINOPHEN 325 MG TABLET PO PRN (13:26)
[2019-08-18 19:10] VITALS: BP 169/73
[2019-08-18] MEDS: QUETIAPINE 25MG TABLET PO SCH (20:21)
[2019-08-18] MEDS: GUAIFENESIN/DM 200-20MG, 10ML UDC PO PRN (20:35)
[2019-08-19 01:08] VITALS: BP 162/80
[2019-08-19] MEDS: methylPREDNISolone SOD SUCC 125 MG/2 ML IVPush SCH ×2 (01:14→09:40)
[2019-08-19 07:39] VITALS: BP 145/87
[2019-08-19] MEDS: ENOXAPARIN 30 MG/0.3 ML SQ SCH ×2 (09:00→09:42)
[2019-08-19] MEDS: MEMANTINE 5MG TABLET PO SCH (09:40)
[2019-08-19] MEDS: CEFTRIAXONE PMX 1GM/50ML 50 ML IV SCH (09:40)
[2019-08-19] MEDS: AZITHROMYCIN 250 MG TABLET PO SCH (09:40)
[2019-08-19] MEDS: DIAZEPAM 5 MG TABLET PO SCH (09:41)
[2019-08-19] MEDS: LOSARTAN 50MG TABLET PO SCH (09:41)
[2019-08-19] MEDS: BUSPIRONE 5 MG TABLET PO SCH (09:41)
[2019-08-19] MEDS: CITALOPRAM 20 MG TABLET PO SCH (09:41)
[2019-08-19] MEDS: FAMOTIDINE 20 MG TABLET PO SCH (09:41)
[2019-08-19] MEDS: NICOTINE 14MG/24 HR PATCH.TD24 TD SCH (10:05)
[2019-08-19] MEDS ORDERED: PRED10TA PO (10:34)
[2019-08-19] MEDS ORDERED: TIOT18CA INH (10:34)
[2019-08-19] MEDS ORDERED: NICO-486 TD (10:34)
[2019-08-19] MEDS ORDERED: ONDA4TAB13 PO (10:34)
[2019-08-19] MEDS ORDERED: IPRA3AMP30 INH (10:34)
[2019-08-19] MEDS ORDERED: LOSA50TA14 PO (10:34)
[2019-08-19] MEDS ORDERED: AZIT250T89 PO (10:34)
[2019-08-19] MEDS ORDERED: GUAI-110 PO (10:34)
[2019-08-19] MEDS ORDERED: CEFD300C37 PO (10:34)
[2019-08-19] MEDS ORDERED: IBUP-1221 PO (10:34)
[2019-08-19] MEDS ORDERED: FAMO20TA7 PO (10:34)
[2019-08-19] MEDS ORDERED: FLUT1DIS3 INH (10:34)
== END 2019-08-19 12:58 | disposition home or self-care (01) | DRG 193 ==
LOC: ED 06:30 → EDIP 08:33 → 3N 09:10 → DCLOUNGE 08-19 12:40
PROVIDERS: ADMIT Family Medicine; ATTEND Internal Medicine
DX: J15.9 Unspecified bacterial pneumonia (principal); N17.0 Acute kidney failure with tubular necrosis; J44.0 Chronic obstructive pulmonary disease with (acute) lower respiratory infection; J44.1 Chronic obstructive pulmonary disease with (acute) exacerbation; F17.210 Nicotine dependence, cigarettes, uncomplicated; F41.9 Anxiety disorder, unspecified; G40.909 Epilepsy, unspecified, not intractable, without status epilepticus; H54.62 Unqualified visual loss, left eye, normal vision right eye; I10 Essential (primary) hypertension; I25.10 Atherosclerotic heart disease of native coronary artery without angina pectoris; I25.2 Old myocardial infarction; G89.29 Other chronic pain; M54.9 Dorsalgia, unspecified; Z90.710 Acquired absence of both cervix and uterus
CPT/HCPCS: 36415; 71045; 80048; 80053; 83605; 83735; 84145; 84484; 85025; 87040; 93005; 96365; 96366; 96368; G0378; J0456; J0696; J1650; J2405; J0360; J2930; J7050; J7120; J7512

== ENCOUNTER 2019-09-12 08:21 | Emergency (ER) | payer MEDICAID ==
[~2019-09-12] VITALS: Ht 160 cm; Wt 54.4 kg
[~2019-09-12 08:21] MED LIST changes: +AZIT250T89 PO; +BUSP15TA PO; +CEFD300C37 PO; +FAMO20TA7 PO; +FLUT1DIS3 INH; +GUAI-110 PO; +IBUP-1221 PO; +IPRA3AMP30 INH; +NICO-486 TD; +ONDA4TAB13 PO; +PRED10TA PO
--- NOTE | 2019-09-12 08:46 | NUR ---
Pt pushed in wheelchair from triage. NADN. No obvious defecits observed.
[2019-09-12] MEDS ORDERED: ALBUTEROL/IPRATROPIUM 2.5MG/0.5MG, 3 ML NPPB SCH (09:00)
[2019-09-12] MEDS ORDERED: ACETAMINOPHEN 325 MG TABLET PO ONE (09:00)
--- NOTE | 2019-09-12 09:01 | NUR ---
Pt ambulates with steady gait and balance from room to bathroom. NADN. Pt c/o sob. Pt seen for same and given medications for pneumonia approximatley 4 days ago. Pt unable to fill Rx. Pt is 100% on room air with even chest rise and fall, lung sounds are clear in all kam, and no labored respirations observed at this time. Pt connected to NIBP cuff, continous pulse ox, and cardiac cath lab technologist. Bedrails up x 2 and call light within reach.
[2019-09-12] MEDS ORDERED: ALBUTEROL/IPRATROPIUM 2.5MG/0.5MG, 3 ML ONE (09:02)
--- NOTE | 2019-09-12 09:07 | NUR ---
RT at bedside. NADN. No needs expressed at this time.
[2019-09-12] MEDS ORDERED: ACETAMINOPHEN 325 MG TABLET ONE (09:15)
[2019-09-12 09:57] LABS: BASOPHILS # (AUTO) 0.03 x10^3/uL (0-0.1); BASOPHILS % (AUTO) 1 % (0-1); EOSINOPHILS # (AUTO) 0.11 x10^3/uL (0-0.4); EOSINOPHILS % (AUTO) 2 % (1-7); LYMPHOCYTES # (AUTO) 1.78 x10^3/uL (1-3.4); LYMPHOCYTES % (AUTO) 38 % (22-44); MD NO; MEAN CORPUSCULAR HEMOGLOBIN 28.9 pg (27.0-34.8); MEAN CORPUSCULAR HGB CONC 33.2 g/dL (32.4-35.8); MEAN PLATELET VOLUME 7.7 fL (7.4-10.4); MONOCYTES # (AUTO) 0.44 x10^3/uL (0.2-0.8); MONOCYTES % (AUTO) 9 % (2-9); NEUTROPHILS # (AUTO) 2.29 x10^3/uL (1.8-6.8); NEUTROPHILS % (AUTO) 49 % (42-75); PLATELET COUNT 169 x10^3/uL (130-400); RED BLOOD COUNT 4.49 x10^6/uL (3.82-5.3); RED CELL DISTRIBUTION WIDTH 14.8 % (9.6-15.2)
[2019-09-12 10:11] LABS: ALBUMIN 3.7 g/dL (3.4-5.0); ANION GAP 7 mmol/L (5-15); CHLORIDE 109 mmol/L (98-107); CREATININE 0.87 mg/dL (0.55-1.02)
[2019-09-12 10:15] LABS: TROPONIN I < 0.015 ng/mL (0.000-0.045)
--- NOTE | 2019-09-12 10:58 | NUR ---
ATTEMPTED TO GET PT. NO IV FOR CTA.
--- NOTE | 2019-09-12 11:08 | NUR ---
Attempted to place PIV. Pt withdrew arm during first attempt. Second attempt unsuccessful. Pt refusing additonal attempts for PIV for CT. EDMD aware.
--- NOTE | 2019-09-12 11:22 | NUR ---
EDPA discussed pro's and con's of CTA and PIV for CTA. Pt stated verbal understanding and agrees for PIV. ED staff technologist attempting placement of PIV at this time.
--- NOTE | 2019-09-12 11:46 | NUR ---
US PIV established. CT aware. Pt ready to go to CT for CTA. NADN. No needs expressed.
--- NOTE | 2019-09-12 12:06 | NUR ---
BREAK RN: PATIENT IN CT.
[2019-09-12] MEDS ORDERED: CEFTRIAXONE PMX 1GM/50ML 50 ML ONE (12:42)
--- NOTE | 2019-09-12 12:45 | NUR ---
Pt ambulates with steady gait and balance to restroom. MARC.
[2019-09-12] MEDS ORDERED: CEFTRIAXONE PMX 1GM/50ML 50 ML IV ONE (13:00)
[2019-09-12] MEDS ORDERED: AZITHROMYCIN 500 MG in SODIUM CHLORIDE 0.9% 250 ML IV ONE (13:00)
--- NOTE | 2019-09-12 13:07 | NUR ---
Provided report to ARABELLA Bhatt. All questions answered. ARABELLA Bhatt to assume care of pt at this time. NADN. No needs expressed.
--- NOTE | 2019-09-12 13:15 | NUR ---
RECEIVED REPORT FROM ARABELLA DE LEÓN. PT RESTING ON [facility]. NADN. CASTILLO.
[2019-09-12 14:02] VITALS: BP 98/50
[2019-09-12] MEDS ORDERED: OMNIPAQUE 350 MG/ML, 100ML BOTTLE ONE (14:54)
== END 2019-09-12 14:10 | disposition home or self-care (01) ==
LOC: ED 09:16
DX: J44.1 Chronic obstructive pulmonary disease with (acute) exacerbation (principal); J15.9 Unspecified bacterial pneumonia; M79.671 Pain in right foot; F17.210 Nicotine dependence, cigarettes, uncomplicated; I25.2 Old myocardial infarction
CPT/HCPCS: 36415; 71046; 71275; 80048; 82040; 83605; 83880; 84484; 85025; 93005; 94640; 96365; 96375; 99284; J0456; J0696; J7050; J7620; Q9967